=== PATIENT | male | born 1975 | race Two or more races ===

== ENCOUNTER 2019-03-19 12:39 | Inpatient (IN) | payer SELFPAY ==
[~2019-03-19] VITALS: Ht 165.1 cm; Wt 108.0 kg
[~2019-03-19 12:39] MED LIST: ENAL2.5T PO; FURO1TAB33 PO; HYDR12.56 PO; IBUP200C3 PO; POTA1TAB61 PO
[2019-03-19 14:02] LABS: Basophils # (auto) 0.1 uL; Basophils % (auto) 0.3 % (0.0-2.0); Eosinophils # (auto) 0 uL; Hematocrit 42.6 % (41.0-53.0); Hemoglobin 14.3 g/dL (13.5-17.5); Lymphocytes # (auto) 1.3 uL; Mean Corpuscular Hemoglobin 30.4 pg (28.0-32.0); Mean Corpuscular Hgb Conc. 33.6 g/dL (32.0-36.0); Mean Corpuscular Volume 90.5 fL (80.0-100.0); Monocytes # (auto) 0.8 uL; Monocytes % (auto) 3.7 % (0.0-12.0); Neutrophils # (auto) 18.9 uL; Nucleated Red Blood Cells % 0.1 %; Platelet Count (auto) 216 10^3/uL (140-450); Red Blood Cells 4.71 10^6/uL (4.5-5.90); Red Cell Distribution Width 13.8 % (11.8-14.3)
[2019-03-19 14:15] LABS: Albumin 2.8 g/dL (3.4-5.0); Anion Gap 10 (5-15); Blood Urea Nitrogen 13 mg/dL (7-18); Calcium 8.2 mg/dL (8.5-10.1); Carbon Dioxide 26 mmol/L (21-32); Chloride 97 mmol/L (98-107); Glucose 214 mg/dL (74-106); Potassium 3.5 mmol/L (3.5-5.1); Sodium 133 mmol/L (136-145)
[2019-03-19 14:21] LABS: Alanine Aminotransferase 48 U/L (16-61); Alkaline Phosphatase 101 U/L (45-117); Aspartate Aminotransferase 27 U/L (15-37); BUN/Creatinine Ratio 11.4; Bilirubin, Total 1.5 mg/dL (0.2-1.0); GFR African American 89 mL/min; GFR Non-African American 74 mL/min; Total Protein 8.4 g/dL (6.4-8.2)
[2019-03-19] MEDS ORDERED: PIPERACILLIN-TAZOB 3.375GM 100 ML IV ONE (15:15)
[2019-03-19] MEDS ORDERED: ASPirin 81 mg TAB PO ONE (15:15)
[2019-03-19] MEDS ORDERED: IOHEXOL 350 MG/ML 100ML IJ ONE (17:08)
[2019-03-19] MEDS ORDERED: NITROGLYCERIN 0.4 MG SL TAB SL PRN (18:30)
[2019-03-19] MEDS ORDERED: DEXTROSE (50%) 50ML SYRG IV PRN (18:30)
[2019-03-19] MEDS ORDERED: CLINDAMYCIN 900MG IV 50 ML IV ONE (18:30)
[2019-03-19] MEDS ORDERED: LORazepam 0.5 MG TAB PO PRN (18:30)
[2019-03-19] MEDS ORDERED: LACTULOSE 20Gm/30ML SOLN PO PRN (18:30)
[2019-03-19] MEDS ORDERED: MORPHINE SULF INJ 2 MG/ML SYRINGE 1ML IV PRN (18:30)
[2019-03-19] MEDS ORDERED: TEMAZEPAM 15 MG CAP PO PRN (18:30)
[2019-03-19] MEDS: traMADol HCL 50 MG TAB PO PRN (19:02)
--- NOTE | 2019-03-19 20:05 | NUR ---
Admitted to room 272 B. Alert and oriented x4. at bedside. Bilat LE edematous and hyperpigmented. Left leg > R leg. Left leg inflammed, red, hot and swollen. IV to left hand patent. Skin clear. Complains of headache for 3 days. Tylenol given and ice pack. Food and drinks given as well. Oriented to room and policies. Verbalized understanding. will bring med list tomorrow.
[2019-03-19] MEDS: SODIUM CHLORIDE 0.9% 1,000 ML IV SCH (20:25)
[2019-03-19 20:30] VITALS: BP 117/61
[2019-03-19] MEDS: ACETAMINOPHEN 500 MG TAB PO PRN (20:30)
[2019-03-19] MEDS: InsuLIN REG 1unit/0.01ml Soln (100units/ml) SC SCH (21:37)
[2019-03-19] MEDS: ACCU-CHEK COMFORT CURVE STRIP VI SCH (21:37)
[2019-03-19 21:44] VITALS: BP 117/61
[2019-03-20] MEDS: CLINDAMYCIN 600MG IV 50 ML IV SCH ×3 (04:00→18:00)
[2019-03-20] MEDS: SODIUM CHLORIDE 0.9% 1,000 ML IV SCH ×2 (04:28→15:47)
[2019-03-20 05:31] VITALS: BP 126/79
[2019-03-20 06:51] LABS: Basophils # (auto) 0.3 uL; Eosinophils # (auto) 0.1 uL; Eosinophils % (auto) 0.5 % (0.0-7.0); Hematocrit 48.8 % (41.0-53.0); Hemoglobin 16.6 g/dL (13.5-17.5); Lymphocytes # (auto) 1.5 uL; Mean Corpuscular Volume 91.1 fL (80.0-100.0); Monocytes # (auto) 1.5 uL; Monocytes % (auto) 9.8 % (0.0-12.0); Neutrophils # (auto) 11.9 uL; Neutrophils % (auto) 77.7 % (37.0-80.0); Nucleated Red Blood Cells % 0.3 %; Platelet Count (auto) 215 10^3/uL (140-450); Red Blood Cells 5.36 10^6/uL (4.5-5.90); Red Cell Distribution Width 14.2 % (11.8-14.3); White Blood Cell 15.3 10^3/uL (4.4-10.8)
[2019-03-20] MEDS: ACCU-CHEK COMFORT CURVE STRIP VI SCH ×4 (06:54→22:17)
[2019-03-20] MEDS: InsuLIN REG 1unit/0.01ml Soln (100units/ml) SC SCH ×4 (06:54→22:11)
--- NOTE | 2019-03-20 07:00 | NUR ---
New IV started to R hand 22 g. and infusing per orders. Found left hand IV next to patient in bed . Changed linens and gown, was soaked wet. Patient had low grade temp last night and afebrile this am. Patient is very non compliant at home.
[2019-03-20 07:27] LABS: Albumin 2.8 g/dL (3.4-5.0); Anion Gap 11 (5-15); Blood Urea Nitrogen 15 mg/dL (7-18); Calcium 8.1 mg/dL (8.5-10.1); Carbon Dioxide 24 mmol/L (21-32); Chloride 99 mmol/L (98-107); Glucose 252 mg/dL (74-106); Potassium 4.1 mmol/L (3.5-5.1); Sodium 134 mmol/L (136-145)
[2019-03-20 07:31] LABS: Alanine Aminotransferase 46 U/L (16-61); Alkaline Phosphatase 113 U/L (45-117); Aspartate Aminotransferase 31 U/L (15-37); BUN/Creatinine Ratio 12.4; Bilirubin, Total 1.3 mg/dL (0.2-1.0); GFR African American 83 mL/min; GFR Non-African American 69 mL/min; Total Protein 8.9 g/dL (6.4-8.2)
[2019-03-20 08:01] LABS: Amphetamine Screen, Urine POSITIVE (NEGATIVE); Barbiturate Scree,Urine NEGATIVE (NEGATIVE); Benzodiazephine Screen, Urine NEGATIVE (NEGATIVE); Cocaine Screen, Urine NEGATIVE (NEGATIVE); Opiate Scree,Urine NEGATIVE (NEGATIVE)
[2019-03-20 08:12] LABS: Alcohol, Urine < 3.0 mg/dL (0-5); Cannabinoid Screen, Urine POSITIVE (NEGATIVE); Phencyclidine Screen, Urine NEGATIVE (NEGATIVE)
--- NOTE | 2019-03-20 08:13 | NUR ---
Opening Shift Note Orientated patient to room and [place]. Assumed care of patient, awake and alert. No S/S of distress/SOB. Patient reported pain of 10/10. Patient requested Tylenol. Informed patient I will be back with Tylenol medication. Instructed on POC and to call for assist PRN, will continue to monitor for changes. Bed in low position and call light within reach.
[2019-03-20 08:20] VITALS: BP 126/82
[2019-03-20] MEDS: cefTRIAXone 1GM/50ML D5W 50 ML IV SCH (09:15)
[2019-03-20] MEDS: ENOXAPARIN SOD 40 MG/0.4 ML SYRINGE SC SCH (09:16)
[2019-03-20] MEDS: PANTOPRAZOLE 40 MG TAB PO SCH (09:16)
[2019-03-20 09:17] VITALS: BP 126/82
[2019-03-20] MEDS: ACETAMINOPHEN 500 MG TAB PO PRN (09:17)
[2019-03-20] MEDS: PROMETHAZINE HCL 25 MG/ML 1ML IV PRN (09:18)
--- NOTE | 2019-03-20 12:55 | NUR ---
Rounds MD Vidal at bedside. New orders received. To call respiratory therapy and obtain ABG.
[2019-03-20] MEDS ORDERED: LORazepam 2MG/ML-1ML VIAL IV PRN (13:00)
[2019-03-20 13:07] VITALS: BP 117/69
--- NOTE | 2019-03-20 13:15 | NUR ---
New orders Alphonso Sosa notified of pending ABG order, patient ambulated to bathroom and back in no acute distress or sob. Urine collected and sent as ordered. Will cont to monitor
[2019-03-20 14:08] LABS: Urine Bacteria NONE SEEN /hpf (None Seen); Urine Blood TRACE /uL (Negative); Urine Specific Gravity 1.019 (1.001-1.035); Urine WBC <1 /hpf (0 - 3)
[2019-03-20 17:00] VITALS: BP 129/99
--- NOTE | 2019-03-20 19:08 | NUR ---
Patient care endorsed endorsed care to Hailey rn. Patient sitting up in bed in no acute distress or sob. Call light within reach
--- NOTE | 2019-03-20 19:30 | NUR ---
Opening Shift Note Assumed care of patient, asleep. Patient falls asleep very easily while speaking with him. Sleep apnea noticed often. Refuses to wear a cpap. IV to right hand patent and infusing fluids per order. No S/S of distress/SOB or pain. Instructed on POC and to call for assist PRN, will continue to monitor for changes Q1hr and PRN.
[2019-03-20] MEDS: traMADol HCL 50 MG TAB PO PRN (20:36)
[2019-03-20 21:30] VITALS: BP 130/88
--- NOTE | 2019-03-20 22:00 | NUR ---
Patient found with IV out from right hand.Requesting medicine for GARCIA. Will medicate per orders. Bharath WERNER placed 22 gauge to R FA. Wrapped and taped well. Will continue to monitor
[2019-03-21] MEDS: SODIUM CHLORIDE 0.9% 1,000 ML IV SCH ×3 (00:28→20:28)
--- NOTE | 2019-03-21 01:00 | NUR ---
Found patient bleeding from IV being pulled out , Patient unaware of how it happened. Nurse Bharath placed IV to [facility] FA 22. gauge. Very hard stick. Patient sleeps very hard and I believe he doesnt realize he pulls it out in his sleep. Changed linens and tele electrodes and gave himself a partial bed bath due to soiling everything from sweating. I marked his left leg where inflamation ends. Looks as tho it might have gotten slightly worse. Will monitor closely. Still complains of headache. Ice pack given
[2019-03-21] MEDS: CLINDAMYCIN 600MG IV 50 ML IV SCH ×3 (02:00→18:33)
[2019-03-21 05:36] VITALS: BP 164/98
[2019-03-21 05:59] LABS: Basophils # (auto) 0.1 uL; Basophils % (auto) 0.5 % (0.0-2.0); Eosinophils # (auto) 0.1 uL; Eosinophils % (auto) 1.3 % (0.0-7.0); Hematocrit 44.4 % (41.0-53.0); Hemoglobin 14.8 g/dL (13.5-17.5); Lymphocytes # (auto) 1.4 uL; Lymphocytes % (auto) 13.1 % (10.0-50.0); Mean Corpuscular Hgb Conc. 33.3 g/dL (32.0-36.0); Mean Corpuscular Volume 92.8 fL (80.0-100.0); Monocytes # (auto) 1.1 uL; Monocytes % (auto) 10.1 % (0.0-12.0); Neutrophils # (auto) 8.1 uL; Nucleated Red Blood Cells % 0.1 %; Platelet Count (auto) 201 10^3/uL (140-450); Red Blood Cells 4.78 10^6/uL (4.5-5.90); Red Cell Distribution Width 14.3 % (11.8-14.3); White Blood Cell 10.8 10^3/uL (4.4-10.8)
[2019-03-21 06:18] LABS: Albumin 2.5 g/dL (3.4-5.0); BUN/Creatinine Ratio 16.5; Calcium 7.9 mg/dL (8.5-10.1); Potassium 4.6 mmol/L (3.5-5.1)
[2019-03-21 06:20] LABS: Bilirubin, Total 0.8 mg/dL (0.2-1.0); Total Protein 8.5 g/dL (6.4-8.2)
--- NOTE | 2019-03-21 06:39 | NUR ---
Patient continues to perspire a large amount. Says hes urinating often as well. Leg inflammation has not spread.Placed mitten on left hand so not to pull his IV in his sleep. Blood sugar 173 this AM. Will give ultram for continued GARCIA.
[2019-03-21] MEDS: InsuLIN REG 1unit/0.01ml Soln (100units/ml) SC SCH ×4 (06:45→22:33)
[2019-03-21] MEDS: ACCU-CHEK COMFORT CURVE STRIP VI SCH ×4 (06:45→22:33)
[2019-03-21] MEDS: traMADol HCL 50 MG TAB PO PRN (07:07)
[2019-03-21 08:21] VITALS: BP 132/89
[2019-03-21] MEDS: cefTRIAXone 1GM/50ML D5W 50 ML IV SCH (10:22)
[2019-03-21] MEDS: PANTOPRAZOLE 40 MG TAB PO SCH (10:22)
[2019-03-21] MEDS: ENOXAPARIN SOD 40 MG/0.4 ML SYRINGE SC SCH (10:22)
[2019-03-21] MEDS: PROMETHAZINE HCL 25 MG/ML 1ML IV PRN (10:33)
[2019-03-21 11:50] VITALS: BP 140/88
--- NOTE | 2019-03-21 14:45 | NUR ---
Hospitalist at bedside MD Vidal at bedside. Aware of patient's status including abnormal labs vs. Per MD Vidal, urine culture was taken after pt was given abx therefore culture is negative on the micro report. Pt requesting pain medication for occasional headaches, new orders for Ibuprofen received. Pt's family at bedside including mother. Patient requesting to set up password at this time. Updated on [employer]. Will cont care
--- NOTE | 2019-03-21 14:50 | NUR ---
Regarding US Patient had food so unable to perform US at this time. Patient instructed for NPO after MN so that US can be done in the morning as per US tech. Patient verbalized understanding. Cont care
[2019-03-21 16:40] VITALS: BP 151/92
[2019-03-21] MEDS: LACTULOSE 20Gm/30ML SOLN PO SCH (18:33)
--- NOTE | 2019-03-21 19:10 | NUR ---
Patient care endorsed endorsed care to Niyah rn. Patient sitting up in chair in no acute distress or sob noted. Patient refusing to wear CPAP at this time. States he will wear it later, pt instructed to notify primary rn when he needs to be put back on CPAP. Call light within reach
--- NOTE | 2019-03-21 19:45 | NUR ---
Respiratory note: FOUND PT OFF CPAP AT THIS TIME, PT SLEEPING COMFORTABLY. NO RESPIRATORY DISTRESS NOTED. WILL CONTINUE TO MONITOR.
[2019-03-21 20:11] VITALS: BP 151/92
--- NOTE | 2019-03-21 20:54 | NUR ---
Opening Shift Note Assumed care of patient, awake and alert. No S/S of distress/SOB or pain. Instructed on POC and to call for assist PRN, will continue to monitor for changes Q1hr and PRN. Informed patient plan of care he has Liver US in am that he needs to not eat or drink after midnight tonight in preparation for exam. Nurse aid informed. Patient verbalizes understanding no questions asked. Call light within reach.
[2019-03-21 21:30] VITALS: BP 133/72
[2019-03-21] MEDS: IBUPROFEN 400 MG TAB PO PRN (22:33)
[2019-03-22] MEDS: CLINDAMYCIN 600MG IV 50 ML IV SCH ×3 (01:46→18:35)
[2019-03-22 05:00] VITALS: BP 124/82
[2019-03-22] MEDS: LACTULOSE 20Gm/30ML SOLN PO SCH ×5 (06:00→21:07)
[2019-03-22 06:04] LABS: Basophils # (auto) 0 uL; Basophils % (auto) 0.5 % (0.0-2.0); Eosinophils # (auto) 0 uL; Eosinophils % (auto) 0.3 % (0.0-7.0); Hemoglobin 15.1 g/dL (13.5-17.5); Lymphocytes # (auto) 1.2 uL; Lymphocytes % (auto) 13.3 % (10.0-50.0); Mean Corpuscular Hemoglobin 30.8 pg (28.0-32.0); Mean Corpuscular Volume 93.6 fL (80.0-100.0); Monocytes % (auto) 11.3 % (0.0-12.0); Neutrophils # (auto) 6.9 uL; Neutrophils % (auto) 74.6 % (37.0-80.0); Nucleated Red Blood Cells % 0.2 %; Platelet Count (auto) 244 10^3/uL (140-450); Red Blood Cells 4.91 10^6/uL (4.5-5.90); Red Cell Distribution Width 14.2 % (11.8-14.3); White Blood Cell 9.2 10^3/uL (4.4-10.8)
[2019-03-22] MEDS: SODIUM CHLORIDE 0.9% 1,000 ML IV SCH ×2 (06:05→16:28)
[2019-03-22] MEDS: ACCU-CHEK COMFORT CURVE STRIP VI SCH ×4 (06:06→21:07)
[2019-03-22] MEDS: InsuLIN REG 1unit/0.01ml Soln (100units/ml) SC SCH ×4 (06:10→21:12)
[2019-03-22 06:12] LABS: Potassium 4.7 mmol/L (3.5-5.1)
[2019-03-22 06:18] LABS: BUN/Creatinine Ratio 13.7; Calcium 8.4 mg/dL (8.5-10.1)
--- NOTE | 2019-03-22 07:10 | NUR ---
Opening Shift Note Assumed care of patient, awake and alert. No S/S of distress/SOB or pain. Instructed on POC and to call for assist PRN, will continue to monitor for changes Q1hr and PRN. Bed locked in lowest position with two side rails up and call light in reach. Pt at this time meal held for liver US will resume meal once complete.
[2019-03-22 07:59] VITALS: BP 126/80
[2019-03-22 08:00] VITALS: BP 126/80
--- NOTE | 2019-03-22 08:30 | NUR ---
LIVER US CALLED DOWN TO US AND VERIFIED COMPLETION OF US SO PATIENT CAN RESUME MEAL. PER US LIVER US IS DONE. PATIENT CONSISTENTLY CALLING FOR WATER AND FOOD. WILL RESUME MEALS AND WATER.
[2019-03-22] MEDS: cefTRIAXone 1GM/50ML D5W 50 ML IV SCH (09:34)
[2019-03-22] MEDS: PANTOPRAZOLE 40 MG TAB PO SCH (10:42)
[2019-03-22] MEDS: ENOXAPARIN SOD 40 MG/0.4 ML SYRINGE SC SCH (10:42)
[2019-03-22 13:00] VITALS: BP 146/96
[2019-03-22] MEDS ORDERED: OPTISON 3ml Vial for INJ IV ONE (15:35)
[2019-03-22 16:43] VITALS: BP 145/96
--- NOTE | 2019-03-22 19:08 | NUR ---
PATIENT OFF BIPAP PATIENT CURRENTLY OFF BI PAP VISITING WITH FAMILY EATING DINNER SATURATION CURRENTLY AT 96% ON 4 L NC
--- NOTE | 2019-03-22 19:55 | NUR ---
Opening Shift Note Assumed care of patient, awake and alert. No S/S of distress/SOB or pain. Patient continues on O2 NC saturating 93-95%. Family at bedside and patient able to converse appropriately and make needs known. Instructed on POC and to call for assist PRN, will continue to monitor for changes Q1hr and PRN. Informed patient has order for ABG to reevaluate patient respiratory status, RT paged for ABG.
[2019-03-22 21:30] VITALS: BP 161/93
--- NOTE | 2019-03-23 01:30 | NUR ---
PATIENT STATES HE WANTS TO BE OFF BIPAP, HAVE A DRINK AND EAT A SANDWICH AND WATCH TV STATES HE DOES NOT FEEL SLEEPY. PLACED PT ON O2 4LNC SATURATING 97-100% IN NO APPARENT RESPIRATORY DISTRESS. WILL CONTINUE TO MONITOR PATINET.
[2019-03-23] MEDS: CLINDAMYCIN 600MG IV 50 ML IV SCH ×3 (01:33→17:26)
[2019-03-23] MEDS: IBUPROFEN 400 MG TAB PO PRN ×2 (01:34→23:47)
[2019-03-23] MEDS: LACTULOSE 20Gm/30ML SOLN PO SCH ×6 (01:34→21:34)
[2019-03-23 05:35] VITALS: BP 125/82
[2019-03-23] MEDS: ACCU-CHEK COMFORT CURVE STRIP VI SCH ×4 (05:40→21:36)
[2019-03-23] MEDS: InsuLIN REG 1unit/0.01ml Soln (100units/ml) SC SCH ×4 (05:40→22:00)
[2019-03-23] MEDS: SODIUM CHLORIDE 0.9% 1,000 ML IV SCH (06:10)
[2019-03-23 06:22] LABS: Albumin 2.4 g/dL (3.4-5.0); BUN/Creatinine Ratio 11.5; Calcium 7.8 mg/dL (8.5-10.1); Potassium 4.2 mmol/L (3.5-5.1)
[2019-03-23 06:26] LABS: Bilirubin, Total 0.4 mg/dL (0.2-1.0); Total Protein 7.1 g/dL (6.4-8.2)
--- NOTE | 2019-03-23 07:13 | NUR ---
Opening Note Received report from shift manager RN. Patient is resting in bed, no signs or symptoms of distress noted at this time. Patient is on Bipap and continuous pulse ox. Oxygen saturation 98%. Patient is easy to wake by calling name. Patient denies pain a this time. Reviewed plan of care with patient, patient verbalized understanding. Bed in low and locked position, call light within reach. Will continue to monitor Q1 hour and PRN.
--- NOTE | 2019-03-23 07:35 | NUR ---
Paged respiratory Patient states he wants to be taken off Bipap. Will continue to monitor.
--- NOTE | 2019-03-23 08:10 | NUR ---
Patient removed Bipap mask Patient stated "I needed it off to eat." Patient placed on 5L NC. Patient on continuos pulse ox. Oxygen saturation 96%. Patient denies shortness of breath at this time. Will continue to monitor Q1 hour and PRN.
[2019-03-23 08:28] VITALS: BP 154/98
[2019-03-23] MEDS: cefTRIAXone 1GM/50ML D5W 50 ML IV SCH (08:29)
[2019-03-23] MEDS: PANTOPRAZOLE 40 MG TAB PO SCH (10:01)
[2019-03-23] MEDS: ENOXAPARIN SOD 40 MG/0.4 ML SYRINGE SC SCH (10:01)
--- NOTE | 2019-03-23 12:16 | NUR ---
Nutrition Assessment Notes please see attached link for complete assessment Est. Needs ABW (84 kg): [id number] kcal (20-23 kcal/kgBW), 50-67 gms pro (0.6-0.8 gms/kgBW r/t elev ammonia). Will continue to monitor pertinent labs and reassess nutrient need prn Addendum: 03/23/19 at [address] Amended: Links added.
[2019-03-23 13:00] VITALS: BP 143/102
[2019-03-23] MEDS ORDERED: CARVEDILOL 3.125 MG TAB PO ONE (13:30)
[2019-03-23 17:00] VITALS: BP 154/95
--- NOTE | 2019-03-23 17:10 | NUR ---
IV insertion IV access obtained, via clean sterile technique by inserting 22 gauge catheter at kleft upper arm. IV secured properly. No trauma to site. Patient tolerated procedure well.
--- NOTE | 2019-03-23 19:17 | NUR ---
Closing Note Report given to night patrol inspector RN. Family at bedside. No signs or symptoms of distress noted at this time.
[2019-03-23] MEDS: CARVEDILOL 3.125 MG TAB PO SCH (21:35)
[2019-03-23 22:57] VITALS: BP 127/76
[2019-03-24] MEDS: LACTULOSE 20Gm/30ML SOLN PO SCH ×3 (02:00→11:49)
[2019-03-24] MEDS: SODIUM CHLORIDE 0.9% 1,000 ML IV SCH (02:00)
[2019-03-24] MEDS: CLINDAMYCIN 600MG IV 50 ML IV SCH ×2 (02:14→11:49)
[2019-03-24 05:30] VITALS: BP 138/87
[2019-03-24] MEDS: ACCU-CHEK COMFORT CURVE STRIP VI SCH ×2 (05:59→11:51)
[2019-03-24] MEDS: InsuLIN REG 1unit/0.01ml Soln (100units/ml) SC SCH ×2 (06:00→11:30)
--- NOTE | 2019-03-24 06:40 | NUR ---
Respiratory note: PATIENT TAKEN OFF BIPAP AT THIS TIME. HE WAS PLACED ON 4LPM N/C.
--- NOTE | 2019-03-24 08:00 | NUR ---
Opening Shift Note Assumed care of patient, awake, alert and oriented X4. No S/S of distress/SOB or pain. O2 @ 2 LPM via nasal cannula with sats @ 95%. Tele#7, paced @ 75 bpm. IV to left umbilicus, 22 gauge, patent and infusing 0.9% NS 50 ml/hr. Instructed on POC and to call for assist PRN, verbalized understanding. Bed locked, in lowest position, call light within reach, will continue to monitor for changes Q1hr and PRN.
[2019-03-24 09:00] VITALS: BP 151/90
[2019-03-24] MEDS: cefTRIAXone 1GM/50ML D5W 50 ML IV SCH (11:48)
[2019-03-24] MEDS: CARVEDILOL 3.125 MG TAB PO SCH (11:50)
[2019-03-24] MEDS: PANTOPRAZOLE 40 MG TAB PO SCH (11:50)
[2019-03-24] MEDS: ENOXAPARIN SOD 40 MG/0.4 ML SYRINGE SC SCH (11:51)
--- NOTE | 2019-03-24 12:30 | NUR ---
ROUNDS Dr Vidal at bedside for rounds, new orders received and followed through. Patient updated on plan of care, verbalized understanding.
[2019-03-24 13:00] VITALS: BP 154/110
[2019-03-24 15:05] VITALS: BP 151/90
== END 2019-03-24 16:30 | disposition home or self-care (01) | DRG 871 ==
LOC: ER 12:39 → TELE 12:40 → TELE-WESTW 19:56
PROVIDERS: ADMIT Internal Medicine; ATTEND Family Medicine
PROC: 5A09357 Assistance with Respiratory Ventilation, Less than 24 Consecutive Hours, Continuous Positive Airway Pressure (ICD-10-PCS; 2019-03-21)
PROC: 5A09357 Assistance with Respiratory Ventilation, Less than 24 Consecutive Hours, Continuous Positive Airway Pressure (ICD-10-PCS; principal; 2019-03-22)
PROC: 5A09357 Assistance with Respiratory Ventilation, Less than 24 Consecutive Hours, Continuous Positive Airway Pressure (ICD-10-PCS; 2019-03-23)
PROC: 5A09357 Assistance with Respiratory Ventilation, Less than 24 Consecutive Hours, Continuous Positive Airway Pressure (ICD-10-PCS; 2019-03-24)
DX: A41.9 Sepsis, unspecified organism (principal); G92 Toxic encephalopathy; I50.43 Acute on chronic combined systolic (congestive) and diastolic (congestive) heart failure; J96.20 Acute and chronic respiratory failure, unspecified whether with hypoxia or hypercapnia; N17.0 Acute kidney failure with tubular necrosis; E87.1 Hypo-osmolality and hyponatremia; F15.23 Other stimulant dependence with withdrawal; I13.0 Hypertensive heart and chronic kidney disease with heart failure and stage 1 through stage 4 chronic kidney disease, or unspecified chronic kidney disease; I24.9 Acute ischemic heart disease, unspecified; L03.116 Cellulitis of left lower limb; E44.0 Moderate protein-calorie malnutrition; E72.20 Disorder of urea cycle metabolism, unspecified; E11.21 Type 2 diabetes mellitus with diabetic nephropathy; E11.22 Type 2 diabetes mellitus with diabetic chronic kidney disease; E78.00 Pure hypercholesterolemia, unspecified; E78.5 Hyperlipidemia, unspecified; F10.10 Alcohol abuse, uncomplicated; F12.90 Cannabis use, unspecified, uncomplicated; F17.210 Nicotine dependence, cigarettes, uncomplicated; G47.30 Sleep apnea, unspecified; I25.10 Atherosclerotic heart disease of native coronary artery without angina pectoris; E66.01 Morbid (severe) obesity due to excess calories; K44.9 Diaphragmatic hernia without obstruction or gangrene; K70.30 Alcoholic cirrhosis of liver without ascites; K72.90 Hepatic failure, unspecified without coma; I34.0 Nonrheumatic mitral (valve) insufficiency; J45.909 Unspecified asthma, uncomplicated; K76.0 Fatty (change of) liver, not elsewhere classified; N18.9 Chronic kidney disease, unspecified; Z82.49 Family history of ischemic heart disease and other diseases of the circulatory system; Z83.3 Family history of diabetes mellitus; Z91.14 Patient's other noncompliance with medication regimen; Z95.0 Presence of cardiac pacemaker; Z68.39 Body mass index [BMI] 39.0-39.9, adult
CPT/HCPCS: 36415; 36600; 70450; 71046; 71275; 73700; 74176; 76705; 80048; 80053; 80307; 81001; 82140; 82550; 82805; 82962; 83036; 83605; 83690; 83880; 84484; 85025; 85652; 87040; 87086; 93005; 93306; 93971; 94660; 96365; G0378; J0696; J1815; J2543; J3490; Q9956

== ENCOUNTER 2019-07-04 15:15 | Emergency (ER) | payer MEDICAID ==
[~2019-07-04] VITALS: Ht 165.1 cm; Wt 113.4 kg
[~2019-07-04 15:15] MED LIST changes: -ENAL2.5T PO
[2019-07-04] MEDS ORDERED: ACETAMINOPHEN 325 MG TAB PO ONE (15:30)
[2019-07-04 16:29] VITALS: BP 111/74
[2019-07-04] MEDS ORDERED: IBUPROFEN 600 MG TAB PO ONE (16:30)
[2019-07-04 17:08] LABS: Basophils # (auto) 0 uL; Basophils % (auto) 0.4 % (0.0-2.0); Eosinophils # (auto) 0 uL; Eosinophils % (auto) 0.5 % (0.0-7.0); Hematocrit 45.2 % (41.0-53.0); Hemoglobin 15.3 g/dL (13.5-17.5); Lymphocytes # (auto) 0.9 uL; Lymphocytes % (auto) 11.5 % (10.0-50.0); Mean Corpuscular Hemoglobin 31.1 pg (28.0-32.0); Mean Corpuscular Volume 91.6 fL (80.0-100.0); Monocytes # (auto) 0.9 uL; Monocytes % (auto) 11.3 % (0.0-12.0); Neutrophils # (auto) 5.8 uL; Neutrophils % (auto) 76.3 % (37.0-80.0); Nucleated Red Blood Cells % 0.5 %; Platelet Count (auto) 181 10^3/uL (140-450); Red Blood Cells 4.93 10^6/uL (4.5-5.90); Red Cell Distribution Width 13.1 % (11.8-14.3); White Blood Cell 7.6 10^3/uL (4.4-10.8)
[2019-07-04 17:16] LABS: Albumin 3.1 g/dL (3.4-5.0); Anion Gap 6 (5-15); Blood Urea Nitrogen 12 mg/dL (7-18); Calcium 7.7 mg/dL (8.5-10.1); Carbon Dioxide 29 mmol/L (21-32); Chloride 97 mmol/L (98-107); Glucose 192 mg/dL (74-106); Potassium 3.5 mmol/L (3.5-5.1); Sodium 132 mmol/L (136-145)
[2019-07-04 17:21] LABS: Alanine Aminotransferase 51 U/L (16-61); Alkaline Phosphatase 108 U/L (45-117); Aspartate Aminotransferase 55 U/L (15-37); BUN/Creatinine Ratio 11.1; Bilirubin, Total 0.8 mg/dL (0.2-1.0); GFR African American 95 mL/min; GFR Non-African American 78 mL/min
== END 2019-07-04 22:34 | disposition left against medical advice (07) ==
LOC: ER 15:15
DX: R07.89 Other chest pain (principal); Z53.21 Procedure and treatment not carried out due to patient leaving prior to being seen by health care provider
CPT/HCPCS: 36415; 71046; 80053; 84484; 85025; 93005